=== PATIENT | male | born 1955 | race Caucasian/White ===

== ENCOUNTER 2017-03-28 05:55 | Inpatient (IN) | payer OTHER ==
[2017-03-28] MEDS ORDERED: morphine (1 MG/ML) 10ML SYRINGE IV ×3 (06:30)
[2017-03-28] MEDS ORDERED: ONDANSETRON 4 MG INJ IV (06:30)
[2017-03-28] MEDS ORDERED: MIDAZOLAM 1 MG/ML 2 ML INJ IV (06:30)
[2017-03-28] MEDS ORDERED: FENTAnyl 50 MCG/ML VIAL IV ×2 (06:30)
[2017-03-28] MEDS ORDERED: LABETALOL HCL 20MG INJ IV (06:30)
[2017-03-28] MEDS ORDERED: hydrALAzine 20 MG INJ IV (06:30)
[2017-03-28] MEDS ORDERED: EPHEDrine SULFATE 50 MG/5 ML SYG IV (06:30)
[2017-03-28] MEDS ORDERED: OXYCODONE/ACETAMINOPHEN (5/325) TAB PO ×2 (06:30)
[2017-03-28] MEDS ORDERED: ATROPINE 1 MG/10 ML SYRINGE IV (06:30)
[2017-03-28] MEDS ORDERED: HYDROmorphONE (0.2 MG/ML) 10ML SYG IV (06:30)
[2017-03-28] MEDS ORDERED: LACTATED RINGER'S 1,000 ML IV (07:00)
[2017-03-28] MEDS ORDERED: SOD CHLORIDE 0.9% 1,000 ML IV (07:00)
[2017-03-28] MEDS ORDERED: CEFAZOLIN 2 GM/50 ML (PMX) 50 ML (FOR WT < 120 KG) IVPB (07:00)
[2017-03-28] MEDS ORDERED: GLYCOPYRROLATE 0.4 MG INJ (09:04)
[2017-03-28] MEDS ORDERED: ROCURONIUM 50 MG INJ ×2 (09:04→10:41)
[2017-03-28] MEDS ORDERED: FENTAnyl 50 MCG/ML VIAL ×2 (09:04→09:29)
[2017-03-28] MEDS ORDERED: morphine SULFATE/PF (10 MG/10 ML) INJ (09:04)
[2017-03-28] MEDS ORDERED: MIDAZOLAM 1 MG/ML 2 ML INJ (09:04)
[2017-03-28] MEDS ORDERED: PROPOFOL 20 ML (09:04)
[2017-03-28] MEDS ORDERED: LIDOCAINE 2% (SDV) 5 ML INJ (09:04)
[2017-03-28] MEDS ORDERED: NEOSTIGMINE 3 MG/3 ML SYRINGE (09:04)
[2017-03-28] MEDS ORDERED: ONDANSETRON 4 MG INJ (09:05)
[2017-03-28] MEDS ORDERED: DEXAMETHASONE 4 MG/ML 1 ML INJ ×2 (09:05→11:23)
[2017-03-28] MEDS ORDERED: SUCCINYLCHOLINE CHLORIDE 100 MG/5 ML SYG IV (09:05)
[2017-03-28] MEDS ORDERED: PHENYLephrine (100 MCG/ML) 5ML SYG ×3 (09:42→10:41)
[2017-03-28] MEDS: TRANEXAMIC ACID 1,000 MG in D5W 100 ML AT INCISION X1 IVPB (10:18)
[2017-03-28] MEDS: BACITRACIN 50000 UNITS INJ (10:42)
[2017-03-28] MEDS: POLYMYXIN B 500000 UNIT INJ (10:43)
[2017-03-28] MEDS: HIP PAIN COCKTAIL (CEFUROXIME) INJ (10:44)
[2017-03-28] MEDS ORDERED: ROPIVACAINE 0.2% 20 ML VIAL (11:23)
[2017-03-28] MEDS: TRANEXAMIC ACID 1,000 MG in D5W 100 ML AT CLOSURE X1 IVPB (12:49)
[2017-03-28] MEDS ORDERED: SUGAMMADEX SODIUM 200 MG/2 ML VIAL IV (12:53)
[2017-03-28] MEDS: SOD CHLORIDE 0.9% 1,000 ML IV ×2 (13:04→21:45)
[2017-03-28] MEDS: CEFAZOLIN 1 GM/50 ML (PMX) 50 ML IVPB ×2 (13:28→21:41)
[2017-03-28] MEDS: DIPHENHYDRAMINE 50 MG INJ IV ×2 (13:29→16:25)
[2017-03-28] MEDS: HYDROmorphONE (0.2 MG/ML) 10ML SYG IV ×4 (13:29→13:50)
[2017-03-28] MEDS ORDERED: traMADol 50 MG TAB PO (13:30)
[2017-03-28] MEDS ORDERED: MAGNESIUM HYDROXIDE 30ML CUP PO (13:30)
[2017-03-28] MEDS ORDERED: NA PHOSPHATE/BIPHOS 133 ML ENEMA PR (13:30)
[2017-03-28] MEDS ORDERED: ZOLPIDEM 5 MG TAB PO ×2 (13:30→14:30)
[2017-03-28] MEDS ORDERED: NACL 0.9% 3 ML SYG IV (13:30)
[2017-03-28] MEDS ORDERED: NALOXONE (0.4 MG/ML) INJ IV ×2 (13:30→14:30)
[2017-03-28] MEDS ORDERED: oxyCODONE 5 MG TAB PO (13:30)
[2017-03-28] MEDS ORDERED: BISACODYL 10 MG SUPP PR (13:30)
[2017-03-28] MEDS: DOCUSATE SODIUM 100 MG CAP PO (13:42)
[2017-03-28] MEDS: ASPIRIN (EC) 325 MG TAB PO ×2 (13:43→21:41)
[2017-03-28] MEDS: ONDANSETRON 4 MG INJ IV ×2 (13:43→19:05)
[2017-03-28] MEDS: MEPERIDINE 25 MG INJ IV (13:43)
[2017-03-28] MEDS ORDERED: HYDROmorphONE 0.5 MG/0.5 ML SYG IV ×2 (14:30)
[2017-03-28] MEDS ORDERED: DIPHENHYDRAMINE 50 MG INJ IV (14:30)
[2017-03-28] MEDS ORDERED: TRIMETHOBENZAMIDE 300 MG CAP PO (19:00)
[2017-03-28] MEDS: BETHANECHOL 25 MG TAB PO ×2 (19:05→22:47)
[2017-03-28] MEDS ORDERED: ARTIFICIAL TEARS 15 ML OPH BOTH EYES (20:00)
[2017-03-28] MEDS: GABAPENTIN 100 MG CAP PO (21:41)
[2017-03-28] MEDS: PANTOPRAZOLE (EC) 40 MG TAB PO (22:42)
[2017-03-29] MEDS: ONDANSETRON 4 MG INJ IV ×3 (01:30→09:44)
[2017-03-29] MEDS: SOD CHLORIDE 0.9% 1,000 ML IV (01:34)
[2017-03-29 04:50] LABS: ADD MAN DIFF? NO
[2017-03-29 04:55] LABS: BASOPHILS % 0.1 % (0.0-2.0); HEMATOCRIT 35.3 % (42.0-52.0); LYMPHOCYTES # 1.5 10^3/ul (0.8-2.9); LYMPHOCYTES % 9.9 % (15.0-51.0); MEAN CORPUSCULAR HEMOGLOBIN 32.3 pg (29.0-33.0); MEAN CORPUSCULAR VOLUME 94.9 fl (82.0-101.0); MEAN PLATELET VOLUME 9.8 fl (7.4-10.4); MONOCYTE # 1.1 10^3/ul (0.3-0.9); MONOCYTES % 7.5 % (0.0-11.0); NEUTROPHILS % 81.3 % (39.0-77.0); PLATELET COUNT 211 10^3/UL (140-415); RED BLOOD COUNT 3.72 10^6/ul (4.70-6.10); RED CELL DISTRIBUTION WIDTH 12.5 % (11.5-14.5)
[2017-03-29 04:55] LABS: WHITE BLOOD COUNT 14.8 10^3/ul (4.8-10.8)
[2017-03-29] MEDS: PANTOPRAZOLE (EC) 40 MG TAB PO (05:09)
[2017-03-29] MEDS: CEFAZOLIN 1 GM/50 ML (PMX) 50 ML IVPB (05:09)
[2017-03-29 05:32] LABS: ANION GAP 12 (8-16); BLOOD UREA NITROGEN 19 mg/dl (7-20); CALCIUM 8.5 mg/dl (8.4-10.2); CARBON DIOXIDE 28 mmol/L (21-31); CHLORIDE 104 mmol/L (97-110); CREATININE 0.81 mg/dl (0.61-1.24); GLUCOSE 154 mg/dl (70-220); POTASSIUM 4.3 mmol/L (3.5-5.1); SODIUM 140 mmol/L (135-144)
[2017-03-29] MEDS ORDERED: PANTOPRAZOLE (EC) 40 MG TAB PO (06:00)
[2017-03-29] MEDS: GABAPENTIN 100 MG CAP PO ×2 (09:43→20:52)
[2017-03-29] MEDS: FERROUS FUMARATE (SR) TAB PO ×2 (09:43→20:52)
[2017-03-29] MEDS: ASPIRIN (EC) 325 MG TAB PO ×2 (09:44→20:52)
[2017-03-29] MEDS: CELECOXIB 200 MG CAP PO ×2 (09:44→20:52)
[2017-03-29] MEDS: DOCUSATE SODIUM 100 MG CAP PO ×2 (09:44→20:52)
[2017-03-29] MEDS: oxyCODONE 5 MG TAB PO ×4 (09:48→20:53)
[2017-03-30] MEDS: oxyCODONE 5 MG TAB PO ×5 (04:12→16:59)
[2017-03-30] MEDS: PANTOPRAZOLE (EC) 40 MG TAB PO (05:26)
[2017-03-30 06:11] LABS: ADD MAN DIFF? NO
[2017-03-30 06:32] LABS: BASOPHILS % 0.1 % (0.0-2.0); EOSINOPHILS # 0.1 10^3/ul (0.0-0.5); EOSINOPHILS % 0.7 % (0.0-7.0); HEMATOCRIT 29.5 % (42.0-52.0); HEMOGLOBIN 10.4 g/dl (14.0-18.0); LYMPHOCYTES # 2.9 10^3/ul (0.8-2.9); LYMPHOCYTES % 32.2 % (15.0-51.0); MEAN CORPUSCULAR HEMOGLOBIN 32.6 pg (29.0-33.0); MEAN CORPUSCULAR HGB CONC 35.3 g/dl (32.0-37.0); MEAN CORPUSCULAR VOLUME 92.5 fl (82.0-101.0); MEAN PLATELET VOLUME 10.3 fl (7.4-10.4); MONOCYTE # 0.9 10^3/ul (0.3-0.9); MONOCYTES % 9.7 % (0.0-11.0); NEUTROPHILS % 56.3 % (39.0-77.0); PLATELET COUNT 162 10^3/UL (140-415); RED BLOOD COUNT 3.19 10^6/ul (4.70-6.10); RED CELL DISTRIBUTION WIDTH 12.6 % (11.5-14.5)
[2017-03-30 06:32] LABS: WHITE BLOOD COUNT 8.9 10^3/ul (4.8-10.8)
[2017-03-30 07:17] LABS: ANION GAP 9 (8-16); BLOOD UREA NITROGEN 18 mg/dl (7-20); CALCIUM 8.3 mg/dl (8.4-10.2); CARBON DIOXIDE 29 mmol/L (21-31); CHLORIDE 104 mmol/L (97-110); CREATININE 0.71 mg/dl (0.61-1.24); GLUCOSE 120 mg/dl (70-220); POTASSIUM 4.2 mmol/L (3.5-5.1); SODIUM 138 mmol/L (135-144)
[2017-03-30] MEDS: CELECOXIB 200 MG CAP PO (08:28)
[2017-03-30] MEDS: ASPIRIN (EC) 325 MG TAB PO (08:28)
[2017-03-30] MEDS: GABAPENTIN 100 MG CAP PO (08:28)
[2017-03-30] MEDS: FERROUS FUMARATE (SR) TAB PO (08:28)
[2017-03-30] MEDS: DOCUSATE SODIUM 100 MG CAP PO (08:28)
[2017-03-30] MEDS: SENNA/DOCUSATE NA (8.6MG/50MG) TAB PO (10:58)
== END 2017-03-30 18:29 | DRG 470 ==
LOC: REC 05:55 → MS1 14:44
PROC: 0SRB04A Replacement of Left Hip Joint with Ceramic on Polyethylene Synthetic Substitute, Uncemented, Open Approach (ICD-10-PCS; principal; 2017-03-28 09:00)
PROC: 8E0YXBZ Computer Assisted Procedure of Lower Extremity (ICD-10-PCS; 2017-03-28 09:00)
DX: M16.12 Unilateral primary osteoarthritis, left hip (principal)
CPT/HCPCS: 71045; 72170; 73500; 73510; 73530; 80048; 85025; 86850; 86900; 86901; 86920; 87081; 88304; 88311; 97116; 97162; 97165; 97530; 97535

== ENCOUNTER 2017-05-30 10:52 | Inpatient (IN) | payer OTHER ==
[2017-05-30] MEDS: ONDANSETRON 4 MG INJ IV (12:03)
[2017-05-30] MEDS: morphine 4 MG/ML VIAL IV (12:04)
[2017-05-30 12:08] LABS: ADD MAN DIFF? NO
[2017-05-30 12:09] LABS: WHITE BLOOD COUNT 7.7 10^3/ul (4.8-10.8)
[2017-05-30 12:09] LABS: BASOPHILS % 0.3 % (0.0-2.0); EOSINOPHILS # 0.2 10^3/ul (0.0-0.5); EOSINOPHILS % 2.1 % (0.0-7.0); HEMATOCRIT 41.5 % (42.0-52.0); HEMOGLOBIN 14.4 g/dl (14.0-18.0); LYMPHOCYTES # 2.3 10^3/ul (0.8-2.9); MEAN CORPUSCULAR HEMOGLOBIN 31.4 pg (29.0-33.0); MEAN CORPUSCULAR HGB CONC 34.7 g/dl (32.0-37.0); MEAN CORPUSCULAR VOLUME 90.4 fl (82.0-101.0); MEAN PLATELET VOLUME 9.7 fl (7.4-10.4); MONOCYTE # 0.5 10^3/ul (0.3-0.9); MONOCYTES % 6.3 % (0.0-11.0); NEUTROPHIL # 4.7 10^3/ul (1.6-7.5); NEUTROPHILS % 60.9 % (39.0-77.0); PLATELET COUNT 250 10^3/UL (140-415); RED BLOOD COUNT 4.59 10^6/ul (4.70-6.10); RED CELL DISTRIBUTION WIDTH 12.5 % (11.5-14.5)
[2017-05-30 12:25] LABS: ANION GAP 15 (8-16); BLOOD UREA NITROGEN 10 mg/dl (7-20); CALCIUM 9.2 mg/dl (8.4-10.2); CARBON DIOXIDE 27 mmol/L (21-31); CHLORIDE 106 mmol/L (97-110); CREATININE 0.68 mg/dl (0.61-1.24); GLUCOSE 130 mg/dl (70-220); POTASSIUM 3.9 mmol/L (3.5-5.1); SODIUM 144 mmol/L (135-144)
[2017-05-30 12:52] LABS: INR 0.98; PROTIME 13.1 Sec (11.9-14.9)
[2017-05-30 12:53] LABS: PARTIAL THROMBOPLASTIN TIME 28.6 Sec (25.0-35.0)
[2017-05-30] MEDS ORDERED: ACETAMINOPHEN 325 MG TAB PO (13:00)
[2017-05-30] MEDS ORDERED: ONDANSETRON 4 MG INJ IV (13:00)
[2017-05-30] MEDS ORDERED: NACL 0.9% 3 ML SYG IV (15:00)
[2017-05-30] MEDS ORDERED: IBUPROFEN 400 MG TAB PO (16:30)
[2017-05-30] MEDS: TAMSULOSIN (SR) 0.4 MG CAP PO (20:30)
[2017-05-30] MEDS: GABAPENTIN 300 MG CAP PO (20:31)
[2017-05-30] MEDS: HYDROCODONE/APAP (5/325) TAB PO (20:34)
[2017-05-31] MEDS: HYDROCODONE/APAP (10/325) TAB PO ×4 (02:12→23:03)
[2017-05-31] MEDS: MAGNESIUM HYDROXIDE 30ML CUP PO ×2 (02:12→16:15)
[2017-05-31] MEDS: GABAPENTIN 300 MG CAP PO ×2 (08:45→20:47)
[2017-05-31] MEDS: ENOXAPARIN 40 MG/0.4 ML SYG SC (08:59)
[2017-05-31] MEDS: TAMSULOSIN (SR) 0.4 MG CAP PO (20:47)
[2017-06-01] MEDS: PANTOPRAZOLE (EC) 40 MG TAB PO (05:09)
[2017-06-01] MEDS: HYDROCODONE/APAP (10/325) TAB PO ×3 (05:10→20:54)
[2017-06-01] MEDS: GABAPENTIN 300 MG CAP PO ×2 (09:18→20:48)
[2017-06-01] MEDS: ENOXAPARIN 40 MG/0.4 ML SYG SC (09:21)
[2017-06-01] MEDS: SENNA/DOCUSATE NA (8.6MG/50MG) TAB PO (20:48)
[2017-06-01] MEDS: TAMSULOSIN (SR) 0.4 MG CAP PO (20:48)
[2017-06-02] MEDS: MAGNESIUM HYDROXIDE 30ML CUP PO (05:35)
[2017-06-02] MEDS: HYDROCODONE/APAP (10/325) TAB PO ×2 (05:35→16:38)
[2017-06-02 05:50] LABS: ADD MAN DIFF? NO
[2017-06-02 05:55] LABS: WHITE BLOOD COUNT 6.7 10^3/ul (4.8-10.8)
[2017-06-02 05:55] LABS: BASOPHILS % 0.3 % (0.0-2.0); EOSINOPHILS # 0.2 10^3/ul (0.0-0.5); EOSINOPHILS % 3.4 % (0.0-7.0); HEMATOCRIT 38.4 % (42.0-52.0); HEMOGLOBIN 12.9 g/dl (14.0-18.0); LYMPHOCYTES # 2.7 10^3/ul (0.8-2.9); LYMPHOCYTES % 40.1 % (15.0-51.0); MEAN CORPUSCULAR HEMOGLOBIN 30.9 pg (29.0-33.0); MEAN CORPUSCULAR HGB CONC 33.6 g/dl (32.0-37.0); MEAN CORPUSCULAR VOLUME 91.9 fl (82.0-101.0); MEAN PLATELET VOLUME 10.1 fl (7.4-10.4); MONOCYTE # 0.5 10^3/ul (0.3-0.9); MONOCYTES % 7.8 % (0.0-11.0); NEUTROPHIL # 3.2 10^3/ul (1.6-7.5); NEUTROPHILS % 48.1 % (39.0-77.0); PLATELET COUNT 220 10^3/UL (140-415); RED BLOOD COUNT 4.18 10^6/ul (4.70-6.10); RED CELL DISTRIBUTION WIDTH 12.5 % (11.5-14.5)
[2017-06-02 06:20] LABS: INR 0.88; PT RATIO 0.9
[2017-06-02 06:21] LABS: PARTIAL THROMBOPLASTIN TIME 29.2 Sec (25.0-35.0)
[2017-06-02 06:23] LABS: ALANINE AMINOTRANSFERASE 22 IU/L (13-69); ALBUMIN 3.4 g/dl (3.3-4.9); ALBUMIN/GLOBULIN RATIO 1.09; ALKALINE PHOSPHATASE 173 IU/L (42-121); ANION GAP 10 (8-16); ASPARTATE AMINO TRANSFERASE 18 IU/L (15-46); BLOOD UREA NITROGEN 12 mg/dl (7-20); CALCIUM 9.1 mg/dl (8.4-10.2); CARBON DIOXIDE 29 mmol/L (21-31); CHLORIDE 107 mmol/L (97-110); CREATININE 0.63 mg/dl (0.61-1.24); GLUCOSE 108 mg/dl (70-220); MAGNESIUM 1.9 mg/dl (1.7-2.5); PHOSPHORUS 3.3 mg/dl (2.5-4.9); POTASSIUM 4.3 mmol/L (3.5-5.1); SODIUM 142 mmol/L (135-144); TOTAL PROTEIN 6.5 g/dl (6.1-8.1)
[2017-06-02 07:00] LABS: HEMOGLOBIN A1C 5.2 % (0-5.9)
[2017-06-02] MEDS: FAMOTIDINE 20 MG TAB PO (09:00)
[2017-06-02] MEDS: GABAPENTIN 300 MG CAP PO ×2 (09:44→20:50)
[2017-06-02] MEDS: ENOXAPARIN 40 MG/0.4 ML SYG SC (09:47)
[2017-06-02] MEDS: PANTOPRAZOLE (EC) 40 MG TAB PO (16:33)
[2017-06-02] MEDS ORDERED: NICOTINE POLACRILEX 2 MG GUM BUCCAL (18:00)
[2017-06-02] MEDS: NICOTINE POLACRILEX 2 MG GUM BUCCAL (18:39)
[2017-06-02] MEDS: LORAZEPAM 2 MG INJ IV (18:45)
[2017-06-02] MEDS: SENNA/DOCUSATE NA (8.6MG/50MG) TAB PO (20:50)
[2017-06-02] MEDS: TAMSULOSIN (SR) 0.4 MG CAP PO (20:50)
[2017-06-03] MEDS: HYDROCODONE/APAP (10/325) TAB PO ×3 (03:07→20:53)
[2017-06-03] MEDS: LORAZEPAM 1 MG TAB PO (04:12)
[2017-06-03] MEDS: PANTOPRAZOLE (EC) 40 MG TAB PO (05:25)
[2017-06-03] MEDS: NICOTINE POLACRILEX 2 MG GUM BUCCAL ×2 (05:27→12:01)
[2017-06-03] MEDS: traMADol 50 MG TAB PO (07:47)
[2017-06-03] MEDS: GABAPENTIN 300 MG CAP PO ×2 (09:20→20:54)
[2017-06-03] MEDS: ENOXAPARIN 40 MG/0.4 ML SYG SC (09:21)
[2017-06-03] MEDS: SENNA/DOCUSATE NA (8.6MG/50MG) TAB PO (20:54)
[2017-06-03] MEDS: TAMSULOSIN (SR) 0.4 MG CAP PO (20:54)
[2017-06-04] MEDS: HYDROCODONE/APAP (10/325) TAB PO ×3 (02:55→19:15)
[2017-06-04] MEDS: LORAZEPAM 1 MG TAB PO ×2 (03:31→14:04)
[2017-06-04] MEDS: PANTOPRAZOLE (EC) 40 MG TAB PO (05:48)
[2017-06-04] MEDS: GABAPENTIN 300 MG CAP PO ×2 (09:37→21:16)
[2017-06-04] MEDS: ENOXAPARIN 40 MG/0.4 ML SYG SC (09:43)
[2017-06-04] MEDS: MAGNESIUM HYDROXIDE 30ML CUP PO (10:30)
[2017-06-04] MEDS: LORAZEPAM 2 MG INJ IV (19:05)
[2017-06-04] MEDS: TAMSULOSIN (SR) 0.4 MG CAP PO (21:15)
[2017-06-04] MEDS: SENNA/DOCUSATE NA (8.6MG/50MG) TAB PO (21:16)
[2017-06-04] MEDS: traMADol 50 MG TAB PO (21:21)
[2017-06-05] MEDS: HYDROCODONE/APAP (10/325) TAB PO ×4 (02:35→20:12)
[2017-06-05] MEDS: PANTOPRAZOLE (EC) 40 MG TAB PO (05:10)
[2017-06-05] MEDS: LORAZEPAM 1 MG TAB PO (05:26)
[2017-06-05] MEDS: MAGNESIUM HYDROXIDE 30ML CUP PO (05:26)
[2017-06-05] MEDS: GABAPENTIN 300 MG CAP PO ×2 (08:15→20:09)
[2017-06-05] MEDS: ENOXAPARIN 40 MG/0.4 ML SYG SC (08:37)
[2017-06-05] MEDS: traMADol 50 MG TAB PO (13:11)
[2017-06-05] MEDS: TAMSULOSIN (SR) 0.4 MG CAP PO (20:09)
[2017-06-05] MEDS: SENNA/DOCUSATE NA (8.6MG/50MG) TAB PO (20:09)
[2017-06-06] MEDS: HYDROCODONE/APAP (10/325) TAB PO ×4 (03:22→22:51)
[2017-06-06] MEDS: LORAZEPAM 1 MG TAB PO (05:27)
[2017-06-06] MEDS: PANTOPRAZOLE (EC) 40 MG TAB PO (06:07)
[2017-06-06] MEDS: GABAPENTIN 300 MG CAP PO ×2 (08:21→20:06)
[2017-06-06] MEDS: ENOXAPARIN 40 MG/0.4 ML SYG SC (08:21)
[2017-06-06] MEDS: traMADol 50 MG TAB PO ×2 (12:05→18:15)
[2017-06-06] MEDS: IBUPROFEN 400 MG TAB PO ×2 (12:05→20:06)
[2017-06-06] MEDS: NICOTINE POLACRILEX 2 MG GUM BUCCAL (15:25)
[2017-06-06] MEDS: MAGNESIUM HYDROXIDE 30ML CUP PO (18:19)
[2017-06-06] MEDS: SENNA/DOCUSATE NA (8.6MG/50MG) TAB PO (20:06)
[2017-06-06] MEDS: TAMSULOSIN (SR) 0.4 MG CAP PO (20:06)
[2017-06-07] MEDS: MAGNESIUM HYDROXIDE 30ML CUP PO ×2 (03:03→08:51)
[2017-06-07] MEDS: traMADol 50 MG TAB PO ×2 (04:23→20:29)
[2017-06-07] MEDS: LORAZEPAM 1 MG TAB PO (04:23)
[2017-06-07] MEDS: PANTOPRAZOLE (EC) 40 MG TAB PO (05:32)
[2017-06-07] MEDS: HYDROCODONE/APAP (10/325) TAB PO ×2 (05:32→16:38)
[2017-06-07] MEDS: FUROSEMIDE 40 MG INJ IV (05:34)
[2017-06-07 05:35] LABS: ADD MAN DIFF? NO
[2017-06-07] MEDS: FUROSEMIDE 20 MG TAB PO (05:37)
[2017-06-07 05:42] LABS: WHITE BLOOD COUNT 6.7 10^3/ul (4.8-10.8)
[2017-06-07 05:42] LABS: BASOPHILS % 0.3 % (0.0-2.0); EOSINOPHILS # 0.2 10^3/ul (0.0-0.5); EOSINOPHILS % 3.6 % (0.0-7.0); HEMATOCRIT 40.3 % (42.0-52.0); HEMOGLOBIN 13.7 g/dl (14.0-18.0); LYMPHOCYTES # 2.7 10^3/ul (0.8-2.9); LYMPHOCYTES % 40.5 % (15.0-51.0); MEAN CORPUSCULAR HEMOGLOBIN 31.2 pg (29.0-33.0); MEAN CORPUSCULAR VOLUME 91.8 fl (82.0-101.0); MEAN PLATELET VOLUME 9.6 fl (7.4-10.4); MONOCYTE # 0.5 10^3/ul (0.3-0.9); MONOCYTES % 7.3 % (0.0-11.0); NEUTROPHIL # 3.2 10^3/ul (1.6-7.5); NEUTROPHILS % 47.7 % (39.0-77.0); PLATELET COUNT 220 10^3/UL (140-415); RED BLOOD COUNT 4.39 10^6/ul (4.70-6.10); RED CELL DISTRIBUTION WIDTH 12.4 % (11.5-14.5)
[2017-06-07 06:20] LABS: ALANINE AMINOTRANSFERASE 47 IU/L (13-69); ALBUMIN 3.8 g/dl (3.3-4.9); ALBUMIN/GLOBULIN RATIO 1.08; ALKALINE PHOSPHATASE 146 IU/L (42-121); ANION GAP 14 (8-16); ASPARTATE AMINO TRANSFERASE 38 IU/L (15-46); BILIRUBIN,INDIRECT 0.2 mg/dl (0-1.1); BILIRUBIN,TOTAL 0.2 mg/dl (0.2-1.3); BLOOD UREA NITROGEN 13 mg/dl (7-20); CALCIUM 9.3 mg/dl (8.4-10.2); CARBON DIOXIDE 30 mmol/L (21-31); CHLORIDE 104 mmol/L (97-110); CREATININE 0.63 mg/dl (0.61-1.24); GLUCOSE 111 mg/dl (70-220); POTASSIUM 4.5 mmol/L (3.5-5.1); SODIUM 143 mmol/L (135-144); TOTAL PROTEIN 7.3 g/dl (6.1-8.1)
[2017-06-07] MEDS: IBUPROFEN 400 MG TAB PO ×2 (08:48→20:30)
[2017-06-07] MEDS: GABAPENTIN 300 MG CAP PO ×2 (08:49→20:29)
[2017-06-07] MEDS: ENOXAPARIN 40 MG/0.4 ML SYG SC (08:57)
[2017-06-07] MEDS: SENNA/DOCUSATE NA (8.6MG/50MG) TAB PO (20:30)
[2017-06-07] MEDS: TAMSULOSIN (SR) 0.4 MG CAP PO (20:30)
[2017-06-07] MEDS: FUROSEMIDE 20 MG INJ IV (21:36)
[2017-06-08] MEDS: HYDROCODONE/APAP (10/325) TAB PO ×3 (00:10→17:56)
[2017-06-08] MEDS: LORAZEPAM 1 MG TAB PO (00:42)
[2017-06-08] MEDS: PANTOPRAZOLE (EC) 40 MG TAB PO (06:02)
[2017-06-08] MEDS: IBUPROFEN 400 MG TAB PO ×2 (09:18→21:01)
[2017-06-08] MEDS: GABAPENTIN 300 MG CAP PO ×2 (09:18→21:01)
[2017-06-08] MEDS: ENOXAPARIN 40 MG/0.4 ML SYG SC (09:20)
[2017-06-08] MEDS: LORAZEPAM 2 MG INJ IV (15:00)
[2017-06-08] MEDS: FUROSEMIDE 20 MG INJ IV (21:01)
[2017-06-08] MEDS: TAMSULOSIN (SR) 0.4 MG CAP PO (21:01)
[2017-06-08] MEDS: SENNA/DOCUSATE NA (8.6MG/50MG) TAB PO (21:01)
[2017-06-09] MEDS: HYDROCODONE/APAP (10/325) TAB PO ×3 (02:09→18:00)
[2017-06-09] MEDS: PANTOPRAZOLE (EC) 40 MG TAB PO (05:31)
[2017-06-09] MEDS: MAGNESIUM HYDROXIDE 30ML CUP PO (06:32)
[2017-06-09] MEDS: GABAPENTIN 300 MG CAP PO ×2 (09:08→20:45)
[2017-06-09] MEDS: IBUPROFEN 400 MG TAB PO ×2 (09:08→20:44)
[2017-06-09] MEDS: ENOXAPARIN 40 MG/0.4 ML SYG SC (09:09)
[2017-06-09 15:28] LABS: ADD UMIC YES; UR ASCORBIC ACID 40 mg/dL (NEGATIVE); UR BILIRUBIN (Dip) NEGATIVE (NEGATIVE); UR BLOOD (Dip) NEGATIVE (NEGATIVE); UR CLARITY CLEAR (CLEAR); UR COLOR YELLOW (YELLOW); UR GLUCOSE (Dip) NEGATIVE (NEGATIVE); UR KETONES (Dip) NEGATIVE (NEGATIVE); UR LEUKOCYTE ESTERASE (Dip) TRACE Leu/ul (NEGATIVE); UR NITRITE (Dip) NEGATIVE (NEGATIVE); UR RBC 2 /HPF (0-5); UR SPECIFIC GRAVITY (Dip) 1.024 (1.003-1.030); UR SQUAMOUS EPITHELIAL CELL FEW /HPF (FEW); UR TOTAL PROTEIN (Dip) NEGATIVE (NEGATIVE); UR UROBILINOGEN (Dip) NEGATIVE (NEGATIVE); UR WBC 5 /HPF (0-5)
[2017-06-09] MEDS: SENNA/DOCUSATE NA (8.6MG/50MG) TAB PO (20:45)
[2017-06-09] MEDS: TAMSULOSIN (SR) 0.4 MG CAP PO (20:49)
[2017-06-09] MEDS: traZODone 50 MG TAB PO (23:40)
[2017-06-10] MEDS: HYDROCODONE/APAP (10/325) TAB PO ×4 (00:01→17:47)
[2017-06-10] MEDS: PANTOPRAZOLE (EC) 40 MG TAB PO (06:22)
[2017-06-10] MEDS: GABAPENTIN 300 MG CAP PO ×2 (08:21→21:02)
[2017-06-10] MEDS: IBUPROFEN 400 MG TAB PO ×2 (08:21→21:02)
[2017-06-10] MEDS: ENOXAPARIN 40 MG/0.4 ML SYG SC (08:24)
[2017-06-10] MEDS: TAMSULOSIN (SR) 0.4 MG CAP PO (21:02)
[2017-06-10] MEDS: SENNA/DOCUSATE NA (8.6MG/50MG) TAB PO (21:02)
[2017-06-10] MEDS: traZODone 50 MG TAB PO (23:47)
[2017-06-11] MEDS: HYDROCODONE/APAP (10/325) TAB PO ×4 (00:07→22:33)
[2017-06-11] MEDS: FUROSEMIDE 20 MG TAB PO (02:01)
[2017-06-11] MEDS: FUROSEMIDE 40 MG INJ IV (02:41)
[2017-06-11] MEDS: PANTOPRAZOLE (EC) 40 MG TAB PO (05:30)
[2017-06-11] MEDS: IBUPROFEN 400 MG TAB PO (05:31)
[2017-06-11] MEDS: GABAPENTIN 300 MG CAP PO ×2 (08:59→21:18)
[2017-06-11] MEDS: ENOXAPARIN 40 MG/0.4 ML SYG SC (09:01)
[2017-06-11] MEDS: KETOROLAC 30 MG INJ IV ×2 (15:04→21:18)
[2017-06-11] MEDS ORDERED: AMITRIPTYLINE 10 MG TAB PO (21:00)
[2017-06-11] MEDS: TAMSULOSIN (SR) 0.4 MG CAP PO (21:18)
[2017-06-11] MEDS: SENNA/DOCUSATE NA (8.6MG/50MG) TAB PO (21:18)
[2017-06-11] MEDS: AMITRIPTYLINE 10 MG TAB PO (21:19)
[2017-06-11] MEDS: LORAZEPAM 1 MG TAB PO (23:49)
[2017-06-12] MEDS: PANTOPRAZOLE (EC) 40 MG TAB PO (06:45)
[2017-06-12] MEDS: GABAPENTIN 300 MG CAP PO ×2 (08:28→20:40)
[2017-06-12] MEDS: ENOXAPARIN 40 MG/0.4 ML SYG SC (08:31)
[2017-06-12] MEDS: HYDROCODONE/APAP (10/325) TAB PO ×2 (08:35→17:48)
[2017-06-12] MEDS: BACLOFEN 10 MG TAB PO ×2 (13:02→20:40)
[2017-06-12] MEDS: KETOROLAC 30 MG INJ IV (20:39)
[2017-06-12] MEDS: TAMSULOSIN (SR) 0.4 MG CAP PO (20:40)
[2017-06-12] MEDS: SENNA/DOCUSATE NA (8.6MG/50MG) TAB PO (20:40)
[2017-06-12] MEDS: AMITRIPTYLINE 10 MG TAB PO (20:40)
[2017-06-12] MEDS: LORAZEPAM 1 MG TAB PO (22:21)
[2017-06-13] MEDS: PANTOPRAZOLE (EC) 40 MG TAB PO (06:14)
[2017-06-13] MEDS: HYDROCODONE/APAP (10/325) TAB PO ×2 (08:47→18:42)
[2017-06-13] MEDS: BACLOFEN 10 MG TAB PO ×3 (08:47→20:20)
[2017-06-13] MEDS: GABAPENTIN 300 MG CAP PO ×2 (08:47→20:20)
[2017-06-13] MEDS: ENOXAPARIN 40 MG/0.4 ML SYG SC (08:52)
[2017-06-13] MEDS: KETOROLAC 30 MG INJ IV (19:05)
[2017-06-13] MEDS: AMITRIPTYLINE 10 MG TAB PO (20:20)
[2017-06-13] MEDS: TAMSULOSIN (SR) 0.4 MG CAP PO (20:20)
[2017-06-13] MEDS: SENNA/DOCUSATE NA (8.6MG/50MG) TAB PO (20:20)
[2017-06-14] MEDS: HYDROCODONE/APAP (10/325) TAB PO ×4 (00:34→18:53)
[2017-06-14] MEDS: KETOROLAC 30 MG INJ IV ×3 (01:29→20:58)
[2017-06-14] MEDS: PANTOPRAZOLE (EC) 40 MG TAB PO (06:16)
[2017-06-14] MEDS: BACLOFEN 10 MG TAB PO ×3 (08:42→20:57)
[2017-06-14] MEDS: GABAPENTIN 300 MG CAP PO ×2 (08:42→20:58)
[2017-06-14] MEDS: ENOXAPARIN 40 MG/0.4 ML SYG SC (08:46)
[2017-06-14] MEDS ORDERED: KETOROLAC 30 MG INJ IV (20:00)
[2017-06-14] MEDS: TAMSULOSIN (SR) 0.4 MG CAP PO (20:57)
[2017-06-14] MEDS: SENNA/DOCUSATE NA (8.6MG/50MG) TAB PO (20:58)
[2017-06-14] MEDS: AMITRIPTYLINE 10 MG TAB PO (20:58)
[2017-06-15] MEDS: HYDROCODONE/APAP (10/325) TAB PO ×4 (00:43→23:52)
[2017-06-15] MEDS: LORAZEPAM 1 MG TAB PO (01:10)
[2017-06-15] MEDS: PANTOPRAZOLE (EC) 40 MG TAB PO (06:00)
[2017-06-15] MEDS: BACLOFEN 10 MG TAB PO ×3 (08:14→21:00)
[2017-06-15] MEDS: GABAPENTIN 300 MG CAP PO ×2 (08:14→21:00)
[2017-06-15] MEDS: KETOROLAC 30 MG INJ IV ×2 (08:14→18:27)
[2017-06-15] MEDS: ENOXAPARIN 40 MG/0.4 ML SYG SC (08:23)
[2017-06-15] MEDS: TAMSULOSIN (SR) 0.4 MG CAP PO ×2 (21:00→23:51)
[2017-06-15] MEDS: AMITRIPTYLINE 10 MG TAB PO (21:00)
[2017-06-15] MEDS: SENNA/DOCUSATE NA (8.6MG/50MG) TAB PO (21:00)
[2017-06-16] MEDS: GABAPENTIN 300 MG CAP PO ×3 (01:10→20:24)
[2017-06-16] MEDS: AMITRIPTYLINE 10 MG TAB PO ×2 (01:10→20:24)
[2017-06-16] MEDS: BACLOFEN 10 MG TAB PO ×4 (01:10→20:24)
[2017-06-16] MEDS: LORAZEPAM 1 MG TAB PO (01:33)
[2017-06-16] MEDS: KETOROLAC 30 MG INJ IV ×3 (01:33→18:59)
[2017-06-16] MEDS: PANTOPRAZOLE (EC) 40 MG TAB PO (03:46)
[2017-06-16] MEDS ORDERED: PROPOFOL 200 MG INJ (07:00)
[2017-06-16] MEDS: ENOXAPARIN 40 MG/0.4 ML SYG SC (09:00)
[2017-06-16] MEDS ORDERED: ROCURONIUM 50 MG INJ (12:55)
[2017-06-16] MEDS ORDERED: EPHEDrine SULFATE 50 MG/5 ML SYG (12:55)
[2017-06-16] MEDS ORDERED: PROPOFOL 100 ML ×2 (12:55→14:48)
[2017-06-16] MEDS ORDERED: PHENYLephrine (100 MCG/ML) 5ML SYG (12:56)
[2017-06-16] MEDS ORDERED: FENTAnyl 50 MCG/ML VIAL (12:56)
[2017-06-16] MEDS ORDERED: MIDAZOLAM 1 MG/ML 2 ML INJ ×2 (12:56→15:40)
[2017-06-16] MEDS ORDERED: LIDOCAINE 1% (MDV) 20 ML INJ (12:56)
[2017-06-16] MEDS ORDERED: SUGAMMADEX SODIUM 200 MG/2 ML VIAL IV (12:56)
[2017-06-16] MEDS ORDERED: LABETALOL HCL 20MG INJ (12:59)
[2017-06-16] MEDS ORDERED: hydrALAzine 20 MG INJ (12:59)
[2017-06-16] MEDS ORDERED: PROPOFOL 200 ML (15:40)
[2017-06-16] MEDS: MIDAZOLAM 1 MG/ML 2 ML INJ IV (16:00)
[2017-06-16] MEDS ORDERED: PROPOFOL 200 MG INJ IV (16:00)
[2017-06-16] MEDS ORDERED: LORAZEPAM 2 MG INJ (17:32)
[2017-06-16] MEDS: LORAZEPAM 2 MG INJ IV (18:09)
[2017-06-16] MEDS: SENNA/DOCUSATE NA (8.6MG/50MG) TAB PO (20:23)
[2017-06-16] MEDS: TAMSULOSIN (SR) 0.4 MG CAP PO (20:24)
[2017-06-16] MEDS: HYDROCODONE/APAP (10/325) TAB PO (23:18)
[2017-06-17] MEDS: KETOROLAC 30 MG INJ IV ×4 (01:03→19:05)
[2017-06-17] MEDS: LORAZEPAM 1 MG TAB PO ×2 (01:16→10:12)
[2017-06-17] MEDS: PANTOPRAZOLE (EC) 40 MG TAB PO (05:19)
[2017-06-17] MEDS: HYDROCODONE/APAP (10/325) TAB PO ×4 (05:20→23:30)
[2017-06-17] MEDS: DEXAMETHASONE 10 MG/ML 1 ML INJ IV ×2 (06:38→12:17)
[2017-06-17] MEDS: BACLOFEN 10 MG TAB PO ×3 (09:19→21:12)
[2017-06-17] MEDS: GABAPENTIN 300 MG CAP PO ×2 (09:19→21:12)
[2017-06-17] MEDS: ENOXAPARIN 40 MG/0.4 ML SYG SC (09:22)
[2017-06-17] MEDS: FUROSEMIDE 40 MG TAB PO (14:30)
[2017-06-17] MEDS: FUROSEMIDE 40 MG INJ IV (15:40)
[2017-06-17] MEDS: SENNA/DOCUSATE NA (8.6MG/50MG) TAB PO (21:12)
[2017-06-17] MEDS: TAMSULOSIN (SR) 0.4 MG CAP PO (21:12)
[2017-06-17] MEDS: AMITRIPTYLINE 10 MG TAB PO (21:13)
[2017-06-18] MEDS: KETOROLAC 30 MG INJ IV ×4 (01:06→22:41)
[2017-06-18] MEDS: LORAZEPAM 1 MG TAB PO (01:06)
[2017-06-18] MEDS: HYDROCODONE/APAP (10/325) TAB PO ×3 (05:53→21:23)
[2017-06-18] MEDS: PANTOPRAZOLE (EC) 40 MG TAB PO (05:54)
[2017-06-18] MEDS: FUROSEMIDE 40 MG INJ IV (08:29)
[2017-06-18] MEDS: ENOXAPARIN 40 MG/0.4 ML SYG SC (08:32)
[2017-06-18] MEDS: predniSONE 20 MG TAB PO (08:39)
[2017-06-18] MEDS: GABAPENTIN 300 MG CAP PO ×2 (08:39→21:21)
[2017-06-18] MEDS: BACLOFEN 10 MG TAB PO ×3 (08:39→21:21)
[2017-06-18] MEDS: SENNA/DOCUSATE NA (8.6MG/50MG) TAB PO (21:21)
[2017-06-18] MEDS: AMITRIPTYLINE 10 MG TAB PO (21:21)
[2017-06-18] MEDS: TAMSULOSIN (SR) 0.4 MG CAP PO (21:21)
[2017-06-19] MEDS: LORAZEPAM 1 MG TAB PO ×2 (02:07→20:04)
[2017-06-19] MEDS: hydrALAzine 20 MG INJ IV ×2 (02:51→20:41)
[2017-06-19] MEDS: FUROSEMIDE 40 MG INJ IV ×2 (02:52→08:39)
[2017-06-19] MEDS: HYDROCODONE/APAP (10/325) TAB PO ×4 (03:38→22:37)
[2017-06-19] MEDS: PANTOPRAZOLE (EC) 40 MG TAB PO (07:38)
[2017-06-19] MEDS: GABAPENTIN 300 MG CAP PO ×2 (08:39→20:37)
[2017-06-19] MEDS: BACLOFEN 10 MG TAB PO ×3 (08:39→20:37)
[2017-06-19] MEDS: predniSONE 20 MG TAB PO (08:39)
[2017-06-19] MEDS: KETOROLAC 30 MG INJ IV ×3 (08:39→20:37)
[2017-06-19] MEDS: ENOXAPARIN 40 MG/0.4 ML SYG SC (08:53)
[2017-06-19] MEDS: SENNA/DOCUSATE NA (8.6MG/50MG) TAB PO (20:37)
[2017-06-19] MEDS: AMITRIPTYLINE 10 MG TAB PO (20:38)
[2017-06-19] MEDS: TAMSULOSIN (SR) 0.4 MG CAP PO (20:38)
[2017-06-20] MEDS: hydrALAzine 20 MG INJ IV (01:53)
[2017-06-20] MEDS: PANTOPRAZOLE (EC) 40 MG TAB PO (06:19)
[2017-06-20] MEDS: HYDROCODONE/APAP (10/325) TAB PO (08:41)
[2017-06-20] MEDS: GABAPENTIN 300 MG CAP PO ×2 (08:41→20:39)
[2017-06-20] MEDS: ENOXAPARIN 40 MG/0.4 ML SYG SC (08:42)
[2017-06-20] MEDS: BACLOFEN 10 MG TAB PO ×3 (08:42→20:38)
[2017-06-20] MEDS: predniSONE 20 MG TAB PO (08:42)
[2017-06-20] MEDS: FUROSEMIDE 20 MG TAB PO (16:02)
[2017-06-20] MEDS: KETOROLAC 15 MG INJ IV ×2 (16:51→22:59)
[2017-06-20] MEDS: AMITRIPTYLINE 10 MG TAB PO (20:38)
[2017-06-20] MEDS: TAMSULOSIN (SR) 0.4 MG CAP PO (20:39)
[2017-06-20] MEDS: SENNA/DOCUSATE NA (8.6MG/50MG) TAB PO (20:39)
[2017-06-21] MEDS: ZOLPIDEM 5 MG TAB PO (00:19)
[2017-06-21] MEDS: PANTOPRAZOLE (EC) 40 MG TAB PO (05:06)
[2017-06-21] MEDS: KETOROLAC 15 MG INJ IV ×2 (05:06→11:09)
[2017-06-21] MEDS: BACLOFEN 10 MG TAB PO ×2 (09:43→13:20)
[2017-06-21] MEDS: HYDROCODONE/APAP (10/325) TAB PO ×2 (09:43→15:55)
[2017-06-21] MEDS: GABAPENTIN 300 MG CAP PO (09:43)
[2017-06-21] MEDS: FUROSEMIDE 20 MG TAB PO (09:44)
[2017-06-21] MEDS: predniSONE 20 MG TAB PO (09:44)
[2017-06-21] MEDS: ENOXAPARIN 40 MG/0.4 ML SYG SC (09:46)
== END 2017-06-21 18:06 | disposition home or self-care (01) | DRG 552 ==
LOC: ICU 06-16 13:39 → MS1 06-17 23:08 → E/R 10:52 → MS1 06-16 21:13
DX: M48.04 Spinal stenosis, thoracic region (principal); M47.24 Other spondylosis with radiculopathy, thoracic region; Z96.642 Presence of left artificial hip joint; H50.112 Monocular exotropia, left eye; I87.2 Venous insufficiency (chronic) (peripheral); M19.90 Unspecified osteoarthritis, unspecified site; N40.0 Benign prostatic hyperplasia without lower urinary tract symptoms; K59.00 Constipation, unspecified; F40.240 Claustrophobia
CPT/HCPCS: 31500; 36415; 71045; 72128; 72156; 72157; 72158; 73510; 80048; 80053; 81001; 83036; 83735; 84100; 84443; 85025; 85610; 85730; 87081; 93306; 93970; 93971; 94002; 96374; 96375; 97110; 97116; 97163; 97164; 97165; 97168; 97530; 97535; 99285-25